=== PATIENT | female | born 1990 | race Two or more races ===

== ENCOUNTER 2016-04-30 17:41 | Outpatient (CLI) | payer OTHER ==
[2016-04-30 18:06] VITALS: BMI 27.4
== END 2016-04-30 19:25 | disposition home or self-care (01) ==
LOC: FBCOUT 17:41 → FBC 17:42 → FBCOUT 19:25
PROVIDERS: ATTEND Obstetrics & Gynecology
DX: O26.892 Other specified pregnancy related conditions, second trimester (principal); R10.9 Unspecified abdominal pain; Z3A.25 25 weeks gestation of pregnancy
CPT/HCPCS: 59050; 81002; G0463

== ENCOUNTER 2016-08-06 04:52 | Inpatient (IN) | payer OTHER ==
[2016-08-06] MEDS ORDERED: LACTATED RINGERS 1,000 ML ONE ×2 (05:01→09:42)
[2016-08-06] MEDS ORDERED: SODIUM CHLORIDE 0.9% FLUSH 10 ML ONE (05:01)
[2016-08-06] MEDS ORDERED: IV START KIT ONE (05:01)
[2016-08-06] MEDS ORDERED: CEFAZOLIN SODIUM 2 GRAM DUPLEX 2 G in Premix (D5W) 50 ml 1 EACH IV PRN ×2 (05:16→05:17)
[2016-08-06] MEDS: LACTATED RINGERS 1,000 ML IV SCH ×3 (05:30→10:30)
[2016-08-06 05:54] VITALS: BMI 30.3
[2016-08-06 05:56] LABS: HEMATOCRIT 34.2 % (37.0-47.0); HEMOGLOBIN 11.1 gm/l (12.0-16.0); MEAN CELL VOLUME 91.2 fl (81.0-99.0); MEAN CORPUSCULAR HEMOGLOBIN 29.6 pg (27.0-31.0); MEAN CORPUSCULAR HGB CONC 32.5 g/dl (33.0-37.0); RED CELL DISTRIBUTION WIDTH 13.2 % (11.5-14.5)
[2016-08-06] MEDS ORDERED: CEFAZOLIN SODIUM 2 GRAM DUPLEX 50 ML IV ONE (06:33)
[2016-08-06] MEDS ORDERED: EPHEDRINE SULFATE UD SYR 25 MG 25 MG/5 ML SYRINGE IV ONE (07:05)
[2016-08-06] MEDS ORDERED: SPINAL PROCEDURAL TRAY 1 EACH ONE (07:05)
[2016-08-06] MEDS ORDERED: MORPHINE SULFATE (DURAMORPH) 1 MG/ML 10ML AMP ONE (07:05)
[2016-08-06] MEDS ORDERED: OXYTOCIN 10 UNITS/ML VIAL ONE ×3 (07:10→07:52)
[2016-08-06] MEDS ORDERED: MIDAZOLAM HCL 1 MG/ML 2ML VIAL ONE (07:11)
[2016-08-06] MEDS ORDERED: ONDANSETRON 4 MG/2ML 2 ML VIAL ONE (07:12)
[2016-08-06] MEDS ORDERED: DIPHENHYDRAMINE HCL 50 MG/1 ML VIAL ONE (07:12)
[2016-08-06] MEDS ORDERED: NALOXONE HCL 0.4 MG/ML VIAL IV PRN (07:50)
[2016-08-06] MEDS ORDERED: ONDANSETRON 4 MG/2ML 2 ML VIAL IV PRN (07:50)
[2016-08-06] MEDS ORDERED: PROMETHAZINE HCL 25 MG/ML VIAL IM PRN (07:50)
[2016-08-06] MEDS ORDERED: NALBUPHINE HCL 20 MG/ML AMP IV PRN (07:50)
[2016-08-06] MEDS ORDERED: EPHEDRINE SULFATE 50 MG/ML 1ML VIAL IV PRN (07:50)
[2016-08-06] MEDS ORDERED: KETOROLAC TROMETHAMINE 30 MG/ML 1 ML VIAL ONE (08:13)
[2016-08-06] MEDS ORDERED: DIPHENHYDRAMINE HCL 25 MG CAPSULE PO PRN (08:20)
[2016-08-06] MEDS ORDERED: DIPHENHYDRAMINE HCL 50 MG/1 ML VIAL IV PRN (08:20)
[2016-08-06] MEDS ORDERED: LANOLIN 50 APPLIC/7G TUBE TP PRN (08:20)
--- NOTE | 2016-08-06 08:34 | PCMBPN ---
Brief Post Op Note: Date of Procedure: 08/06/16 Start Time: Preoperative Diagnosis: 1. intrauterine at 39 weeks, previous cesarian section, keloid scar Postoperative Diagnosis: 1. Same Procedure: repeat lower segment cesarian section, excision of keloid scar, vacuum extraction Surgeon: Marshall Randolph Assist:ms erica kumar, , ms harvey Anesthesia: spinal, mr correia Findings: term sized uterus, clear amniotic fluid, both ovaries and tubes normal , live baby girl, mark position, placenta intact Condition: stable Complications: none IV Fluids: mLs of LR Urine Output: mLs Estimated Blood Loss: 400 mLs Tourniquet Time: N/A Specimens: N/A Implants: Drains: closure alireza patient tolerated procedure well and was returned to recovery room in stable condition with camacho draining clear yellow urine
[2016-08-06] MEDS ORDERED: HYDROMORPHONE HCL 1 MG/ML SYRINGE IV PRN (08:56)
[2016-08-06] MEDS ORDERED: METHYLERGONOVINE MALEATE 0.2 MG/ML 1ML AMP ONE (09:15)
[2016-08-06] MEDS ORDERED: METHYLERGONOVINE MALEATE 0.2 MG/ML 1ML AMP IV ONE (09:18)
--- NOTE | 2016-08-06 09:45 | HP ---
Ratna Colenandez HISTORY OF PRESENT ILLNESS: She is a 25-year-old female last period 11/07/2015 with an estimated date of delivery of 08/13/2016 making her 39 weeks at time of repeat section. She is admitted for a repeat section with a history of a previous section by large for gestational age baby and previous shoulder dystocia with her first . OB HISTORY: 3, para 2-0-0-2, one normal vaginal delivery of a 9 pound baby boy with a shoulder dystocia present. She elected to have a primary lower segment section in February 2015 with a history of shoulder dystocia and she is admitted now for a repeat section. JACKER HISTORY: Menarche 14 x28 x7, STD's negative. PAST MEDICAL HISTORY: Positive for urinary tract infections. She had a ureteral catheterization in the past. PAST SURGICAL HISTORY: section x1 and a ureteral canalization. SOCIAL HISTORY: Nonsmoker, nondrinker. FAMILY HISTORY: Negative. REVIEW OF SYSTEMS: Noncontributory. PHYSICAL EXAMINATION: GENERAL: A healthy female in no acute distress. HEENT: Normal. NECK: Supple. Thyroid not palpable. BREAST: Soft, no masses. HEART: Regular sinus rhythm, no murmur. LUNGS: Clear. ABDOMEN: Benign. Uterine fundus at 39 cm. heart present on last exam with a pfannenstiel incision. PELVIC: On last exam the cervix was closed, uneffaced, in vertex presentation, -4 station. IMPRESSION: 1. Intrauterine at term. 2. Previous shoulder dystocia. 3. Previous section. PLAN: Is a repeat lower segment section. Risks, reasons, complications, living will discussed, and alternatives discussed. All questions answered using simple language and the complications that were discussed included infection, anesthesia, or accidents, hemorrhage, but was not limited to these complications. She is Group B Strep positive. JOB: [id number]
--- NOTE | 2016-08-06 10:12 | OP ---
Ratna Baez : 1990 NAME OF OPERATION: Repeat lower segment section and excision of keloid scar, and a vacuum extraction of the baby. PREOPERATIVE DIAGNOSES: 1. Intrauterine 39 weeks. 2. Previous section. 3. Keloid scar. POSTOPERATIVE DIAGNOSES: 1. Intrauterine 39 weeks. 2. Previous section. 3. Keloid scar. BILINGUAL MEDICAL ASSISTANT: Dr. Marshall Bhatt. ASSISTANTS: Ms. Radha Nair and Ms. Live, Midwifery student. ANESTHESIA: Mr. Quiroga, Spinal. DESCRIPTION OF PROCEDURE: Dictation begins with the patient in the supine position. She had a spinal anesthesia. The abdomen was prepared with chloraprep and draped in the usual manner for pfannenstiel incision and then the skin was tested and found to be with complete anesthesia. After a timeout was preformed an incision was made superior and inferior to the keloid from the previous section and keloid scar was removed with the knife. The knife was then used to dissect down the subcutaneous tissue to the rectus abdominis fascia which was nicked with the knife and carried laterally with Guerra scissors. All bleeding points were clamped with Blanca's and bovied. The superior portion of the fascia was grasped with Dank clamps. The median raphe divided with the Guerra scissors and a similar procedure was performed on the lower end of the incision. The muscle was split in the mid portion. The peritoneum identified, picked up with two Blanca clamps, divided in between with the Metzenbaum scissors and then the peritoneum was stretched laterally. Findings included a term sized uterus, both ovaries and tubes appeared normal. A [place] retractor was inserted into the lower end of the incision and the anterior visceroperitoneum was grasped with a tissue forceps, nicked with the Metzenbaum scissors, carried laterally with the same scissors. The bladder flap was then bluntly dissected down and replaced underneath the [place] retractor. A knife was used to make a lower uterine incision which was stretched laterally. There was clear amniotic fluid noted and a kiwi was placed and a mid sagittal suture of the baby scalp 1.5 cm in front of the posterior fontenelle. It was in MANAV position. The baby was delivered in uneventfully through the incision using the vacuum, it did not slip and delivery took approximately 30 seconds. Baby was delivered uneventfully and she cried spontaneously. The cord was then clamped with two Blanca clamps, divided in between with a bandage scissor and the baby was given to the nurse for care. Cord blood was obtained and then the placenta was delivered manually intact. The uterus was wiped clean of membranes and blood clots. Ring forceps were placed at 3, 6, 9, and 12 o'clock positions of the uterus and the uterus was closed in two layers with #1 Chromic continuous interlocking sutures the second layer imbricating the first. One additional bleeding on the left angle was bovied resulting in complete hemostasis there. There was minimal bleeding noted at the bladder edge and this was bovied resulting in complete hemostasis. Now with complete hemostasis and sponge and instrument count reported as correct the rectus abdominis fascia was reapproximated with 1 Chromic interrupted suture x3. Subcutaneous bleeding points were bovied and then the fascia was closed in right and left halves with 1 Vicryl material in a continuous manner locking the first stitch only. Additional subcutaneous bleeding points were bovied and then the skin was closed with alireza. Estimated blood loss was 400 mL and patient tolerated procedure well and was returned to recovery room in stable condition with Zepeda draining clear yellow urine. Patient received 2 gm of Ancef at the onset of the surgery prior to incision. There was clear yellow urine in the Zepeda at closure. FINAL DIAGNOSES: 1. Intrauterine 39 weeks. 2. Previous section. 3. Keloid scar. JOB: [id number]
[2016-08-06] MEDS: DIPHENHYDRAMINE HCL 50 MG/1 ML VIAL IV PRN ×3 (11:50→20:44)
[2016-08-06] MEDS: DOCUSATE SODIUM 100 MG CAPSULE PO SCH ×2 (12:16→20:44)
[2016-08-06] MEDS: PRENATAL VIT/FE FUMARATE/FA 1 TABLET PO SCH (12:16)
[2016-08-06] MEDS: OXYCODONE/ACETAMINOPHEN 5/325 MG TABLET PO PRN ×2 (13:32→20:57)
[2016-08-06] MEDS: KETOROLAC TROMETHAMINE 30 MG/ML 1 ML VIAL IV SCH ×3 (16:00→22:34)
[2016-08-07] MEDS: LACTATED RINGERS 1,000 ML IV SCH ×4 (03:41→19:14)
[2016-08-07] MEDS: KETOROLAC TROMETHAMINE 30 MG/ML 1 ML VIAL IV SCH (04:20)
[2016-08-07] MEDS: OXYCODONE/ACETAMINOPHEN 5/325 MG TABLET PO PRN ×5 (04:20→21:33)
[2016-08-07 06:43] LABS: HEMATOCRIT 31.1 % (37.0-47.0); HEMOGLOBIN 10.1 gm/l (12.0-16.0)
[2016-08-07] MEDS: IBUPROFEN 800 MG TABLET PO PRN ×3 (10:02→21:33)
[2016-08-07] MEDS: DOCUSATE SODIUM 100 MG CAPSULE PO SCH ×2 (10:02→21:20)
[2016-08-07] MEDS: PRENATAL VIT/FE FUMARATE/FA 1 TABLET PO SCH (10:02)
--- NOTE | 2016-08-07 10:26 | PDOC44 ---
- Subjective Day: 1 (offers no complaints, feels well) Reports Flatus, Reports Pain Tolerable, Reports , Reports Lochia Light, Reports Tolerating Clear Liquids, Reports Tolerating Regular Diet, Denies Nausea, Denies Vomiting, Denies Fever - Objective Temp Pulse Resp BP Pulse Ox 98.9 F 83 16 97/56 08/07/16 08:21 08/07/16 08:21 08/07/16 08:21 08/07/16 08:21 Lab Results 08/07/16 06:10 Hgb 10.1 L Hct 31.1 L Current Medications Generic Name Dose Route Start Last Admin Trade Name Freq PRN Reason Stop Dose Admin Diphenhydramine HCl 25 - 50 mg 08/06/16 08:20 Benadryl PO Q6H PRN Itching (Mild/Moderate) Diphenhydramine HCl 25 - 50 mg 08/06/16 08:20 Benadryl IV Q6H PRN Itching (Severe) Docusate Sodium 100 mg 08/06/16 09:00 08/07/16 10:02 Colace PO 100 mg BID SALMA Administration Emollient Ointment 1 applic 08/06/16 08:20 [id number] TP PRN PRN sore nipples Hydromorphone HCl 0.25 - 0.5 mg 08/06/16 08:56 Dilaudid IV Q5M PRN Pain (Breakthrough) Lactated Ringer's 1,000 mls @ 125 mls/hr 08/06/16 10:30 08/07/16 07:14 Lactated Ringers IV Not Given .Q8H SALMA Ibuprofen 800 mg 08/06/16 08:20 08/07/16 10:02 Motrin PO 800 mg Q8H PRN Administration Pain Multivi/Iron Carb/Fe Sulf/FA/Prenat 1 tab 08/06/16 09:00 08/07/16 10:02 Plus PO 1 tab DAILY SALMA Administration Oxycodone/Acetaminophen 1 - 2 tab 08/06/16 08:20 08/07/16 08:18 Percocet 5/325 PO 1 tab Q4H PRN Administration Pain (Moderate) Sodium Chloride 10 ml 08/06/16 08:20 08/07/16 04:20 Normal Saline 10ml Flush IV 10 ml PRN PRN Administration IV Flush Sodium Chloride 10 ml 08/06/16 17:00 08/07/16 08:19 Normal Saline 10ml Flush IV 10 ml Q8HR SALMA Administration - Physical Exam General: Afebrile, No Acute Distress Psych/Mental Status: Mood/Affect Appropriate, Judgment/Insight Intact, Bonding Well Lungs: Clear to Auscultation Bilaterally, Normal Air Movement Breast: Soft, Skin intact, Nipples Intact, No Tenderness, No Erythema, No Engorged Fundus: Firm, Midline, Below Umbilicus, Other (minimal tenderness) Abdomen: Normal Bowel Sounds, Other (passed flatus, no bowel movement yet), No Tenderness, No Distention Genitourinary: Other (camacho just removed) Lochia: Light Extremities: No Tenderness Wound AIR TRAFFIC COORDINATOR: Dressing in Place, Dressing Clean/Dry/Intact Disposition: Stable
[2016-08-07] MEDS: FERROUS SULFATE (65 Fe) 325 MG TABLET PO SCH (12:01)
[2016-08-08] MEDS: OXYCODONE/ACETAMINOPHEN 5/325 MG TABLET PO PRN ×3 (01:38→09:34)
[2016-08-08] MEDS: LACTATED RINGERS 1,000 ML IV SCH (03:54)
[2016-08-08] MEDS: IBUPROFEN 800 MG TABLET PO PRN (05:43)
[2016-08-08 08:30] VITALS: BP 107/58
[2016-08-08] MEDS: FERROUS SULFATE (65 Fe) 325 MG TABLET PO SCH ×2 (08:41→09:33)
[2016-08-08] MEDS: PRENATAL VIT/FE FUMARATE/FA 1 TABLET PO SCH (08:41)
[2016-08-08] MEDS: DOCUSATE SODIUM 100 MG CAPSULE PO SCH (08:41)
--- NOTE | 2016-08-08 09:33 | PDOC39B ---
Hospital Course: ADMIT DATE: 08/06/16 DISCHARGE DATE: [08/08/16 ] ADMISSION DIAGNOSES: [h/o previous c/s] PROCEDURES: [repeat low transverse ceserean section] HISTORY OF PRESENT ILLNESS: 25 year old G3 T2 L2 at 39 weeks 0 days presenting for repeat low transverse ceserean section] HOSPITAL COURSE: The patient [underwent her scheduled repeat c section without complication.] By day of discharge the patient is ambulating, eating, voiding, and passing flatus without difficulty. Pain is controlled and lochia is appropriate. She is [] - Physical Exam Vital Signs: Temp Pulse Resp BP Pulse Ox 98.2 F 84 16 107/58 08/08/16 08:21 08/08/16 08:21 08/08/16 08:21 08/08/16 08:21 General: Afebrile Psych/Mental Status: Mood/Affect Appropriate, Judgment/Insight Intact, Bonding Well Neurological: Grossly Intact, Alert, Oriented x 4, Normal Speech HEENT: Atraumatic, PERRLA, EOMI, Mucous membr. moist/pink Lungs: Clear to Auscultation Bilaterally, Normal Air Movement Cardiovascular: Regular Rate and Rhythm, Normal S1, Normal S2 Breast: Soft, Skin intact Fundus: Firm, Midline, At Umbilicus Abdomen: Normal Bowel Sounds Genitourinary: Normal Female Genitalia Lochia: Moderate Skin: Normal Color, Warm, Dry Wound: Well Approximated, Jessica Intact - Discharge Plan Disposition: Home Instruction Forms: Section Discharge Instructions Prescriptions: Oxycodone HCl/Acetaminophen [PERCOCET 5/325 MG TABLET (SHF)] 1 - 2 tab PO Q4H PRN #30 tab PRN Reason: Pain
== END 2016-08-08 12:46 | disposition home or self-care (01) | DRG 766 ==
LOC: FBC 04:52
PROVIDERS: ADMIT Obstetrics & Gynecology; ATTEND Obstetrics & Gynecology
PROC: 10D00Z1 Extraction of Products of Conception, Low, Open Approach (ICD-10-PCS; principal; 2016-08-06)
DX: O34.211 Maternal care for low transverse scar from previous cesarean delivery (principal); Z3A.39 39 weeks gestation of pregnancy; Z37.0 Single live birth